=== PATIENT | female | born 1995 | race American Indian/Alaskan Native ===

== ENCOUNTER 2016-11-24 12:06 | Emergency (ER) | payer BC ==
[2016-11-24 12:39] VITALS: BP 140/59
--- NOTE | 2016-11-24 19:15 | Emergency Department Report ---
HPI - General Chief Complaint: Allergic Reaction - HPI HPI: I did not see this patient ED Past Medical Hx - Past Medical History Additional medical history: OBESITY. TENDONITIS. ANEMIA - Surgical History Past Surgical History?: No - Social History Smoking Status: Never Smoker Substance Use Type: None ED Review of Systems ROS: Stated complaint: ALLERGIC REACTION FROM MEDS Other details as noted in HPI Physical Exam - Physical Exam Vital Signs: Vital Signs 11/24/16 12:33 Temperature 98.3 F Pulse Rate 87 Respiratory 18 Rate Blood Pressure 140/59 O2 Sat by Pulse 100 Oximetry ED Course Vital Signs 11/24/16 12:33 Temperature 98.3 F Pulse Rate 87 Respiratory 18 Rate Blood Pressure 140/59 O2 Sat by Pulse 100 Oximetry Critical care attestation.: If time is entered above; I have spent that time in minutes in the direct care of this critically ill patient, excluding procedure time. ED Disposition Disposition: ELOPED Condition: Stable Referrals: KHAI ORTA MD [Primary Care Provider] - 3-5 Days
== END 2016-11-24 15:57 | disposition left against medical advice (07) ==
LOC: ED 12:06
DX: T78.40XA Allergy, unspecified, initial encounter (principal); X58.XXXA Exposure to other specified factors, initial encounter; Z53.21 Procedure and treatment not carried out due to patient leaving prior to being seen by health care provider